=== PATIENT | female | born 1975 | race Two or more races ===

== ENCOUNTER 2025-05-04 14:10 | Emergency (ER) | payer MEDICAID ==
[~2025-05-04] VITALS: Ht 167.6 cm; Wt 81.6 kg
[2025-05-04 14:20] VITALS: TEMP 98.3
[2025-05-04 18:03] VITALS: BP 129/72; O2SAT 98
== END 2025-05-04 18:04 | disposition home or self-care (01) ==
LOC: ER 14:14
DX: S80.02XA Contusion of left knee, initial encounter (principal); S00.93XA Contusion of unspecified part of head, initial encounter; R51.9 Headache, unspecified; Z88.5 Allergy status to narcotic agent; Z88.0 Allergy status to penicillin; W19.XXXA Unspecified fall, initial encounter; Y93.89 Activity, other specified; Y92.89 Other specified places as the place of occurrence of the external cause; Y99.8 Other external cause status
CPT/HCPCS: 70450-TC; 73090-TC; 73502; 73564-TC